=== PATIENT | male | born 1985 | race Caucasian/White ===

== ENCOUNTER 2016-08-23 08:55 | Emergency (ER) | payer SELFPAY ==
[~2016-08-23] VITALS: Ht 172.7 cm; Wt 72.6 kg
[2016-08-23 08:55] VITALS: BP 133/105
[2016-08-23] MEDS ORDERED: NS IV 1000 ML 1,000 ML IV ONE (09:03)
--- NOTE | 2016-08-23 09:25 | ED General ---
General Chief Complaint: Substance Abuse Stated Complaint: CHEST PAIN Source of Information: Patient Exam Limitations: No Limitations History of Present Illness Time Seen by Provider: 08:57 Initial Comments Here with report of feeling weak, shaky and not well. Noted to be hypertensive and tachycardic by EMS. Patient did admit to using methamphetamine yesterday. Last use was approximately 6 months ago. States he was very freaked out about what he was feeling. He has concerns about a rash on his hands as well as perceived feeling that he has no blood in his body. Denies nausea, vomiting or chest pain. Timing/Duration: 4-6 Hours Severity: Moderate Associated Systoms: No Cough, No Fever/Chills, No Nausea/Vomiting, No Shortness of Air, No Weakness Allergies and Home Medications Allergies Coded Allergies: No Known Drug Allergies (Unverified , 08/23/16) Home Medications No Active Prescriptions or Reported Meds Constitutional: see HPINo chills, No fever Respiratory: no symptoms reported Cardiovascular: see HPINo chest pain, palpitations Gastrointestinal: no symptoms reportedNo nausea, No vomiting Genitourinary: no symptoms reported Musculoskeletal: no symptoms reported Skin: see HPI change in color pruritus rash Psychiatric/Neurological: See HPI AnxietyDenies Weakness, Other (twitching) All Other Systems Reviewed Negative Unless Noted: Yes Past Nwpinka-Ybrxft-Ecwdnz Hx Patient Social History Alcohol Use: Occasionally Uses Recreational Drug Use: Yes (METH ) Smoking Status: Current Everyday Smoker Recent Hopitalizations: No Seasonal Allergies Seasonal Allergies: No Surgeries HX Surgeries: No Respiratory Hx Respiratory Disorders: No Cardiovascular Hx Cardiac Disorders: No Reviewed Nursing Assessment Reviewed/Agree w Nursing PMH: Yes Family Medical History Significant Family History: No Pertinent Family Hx Physical Exam Vital Signs Vital Sign - Last 12Hours 08/23/16 08:55 Temp 98.4 Pulse 93 Resp 18 B/P 169/93 Pulse Ox 100 Capillary Refill : General Appearance: WD/WN Anxious HEENT: PERRL/EOMI Pharynx Normal Other (facial twitching noted) Neck: Non Tender Supple Respiratory: Lungs Clear Normal Breath Sounds Cardiovascular: No Murmur Tachycardia Gastrointestinal: Non Tender Soft Back: Normal Inspection No CVA Tenderness No Vertebral Tenderness Extremity: Non Tender No Calf Tenderness Neurologic/Psychiatric: Alert Oriented x3 Skin: Normal Color Warm/Dry Progress/Results/Core Measures Results/Orders Lab Results Laboratory Tests Test 08/23/16 09:00 Range/Units Alanine Aminotransferase (ALT/SGPT) 36 0-55 U/L Albumin 4.2 3.2-4.5 G/DL Alkaline Phosphatase 90 40-136 U/L Anion Gap 9 5-14 MMOL/L Aspartate Amino Transf (AST/SGOT) 28 5-34 U/L BUN/Creatinine Ratio 8 Basophils # (Auto) 0.0 0.0-0.1 10^3/uL Basophils (%) (Auto) 0 0-10 % Blood Urea Nitrogen 8 7-18 MG/DL Calcium Level 8.5 8.5-10.1 MG/DL Carbon Dioxide Level 25 21-32 MMOL/L Chloride Level 104 98-107 MMOL/L Creatinine 0.95 0.60-1.30 MG/DL Eosinophils # (Auto) 0.2 0.0-0.3 10^3/uL Eosinophils (%) (Auto) 3 0-10 % Estimat Glomerular Filtration Rate > 60 Glucose Level 107 H 70-105 MG/DL Hematocrit 41 40-54 % Hemoglobin 14.9 13.3-17.7 G/DL Lymphocytes # (Auto) 2.5 1.0-4.0 X 10^3 Lymphocytes (%) (Auto) 34 12-44 % Mean Corpuscular Hemoglobin 32 25-34 PG Mean Corpuscular Hemoglobin Concent 36 32-36 G/DL Mean Corpuscular Volume 90 80-99 FL Mean Platelet Volume 10.8 H 7.4-10.4 FL Monocytes # (Auto) 0.9 0.0-1.0 X 10^3 Monocytes (%) (Auto) 12 0-12 % Neutrophils # (Auto) 3.7 1.8-7.8 X 10^3 Neutrophils (%) (Auto) 51 42-75 % Platelet Count 215 130-400 10^3/uL Potassium Level 3.4 L 3.6-5.0 MMOL/L Red Blood Count 4.60 4.35-5.85 10^6/uL Red Cell Distribution Width 12.4 10.0-14.5 % Sodium Level 138 135-145 MMOL/L Total Bilirubin 0.9 0.1-1.0 MG/DL Total Creatine Kinase 300 H 30-200 U/L Total Protein 6.6 6.4-8.2 G/DL Troponin I < 0.30 <0.30 NG/ML White Blood Count 7.3 4.3-11.0 10^3/uL My Orders Orders-JIM BARRIOS MD Iv 1000 Ml (Sodium Chloride 0.9%) (08/23/16 09:03) Metoprolol Succinate (Xl) Tab (Toprol Xl (08/23/16 09:15) Cbc With Automated Diff (08/23/16 09:33) Comprehensive Metabolic Panel (08/23/16 09:33) Creatine Kinase (08/23/16 09:33) Troponin I (08/23/16 09:33) Ekg Tracing (08/23/16 09:37) Medications Given in ED Current Medications Medications Dose Ordered Sig/Eri Route Start Time Stop Time Status Last Admin Dose Admin Metoprolol Succinate 50 mg ONCE ONCE PO 08/23/16 09:15 08/23/16 09:16 DC 08/23/16 09:16 50 MG Sodium Chloride 1,000 ml @ 0 mls/hr Q0M ONCE IV 08/23/16 09:03 08/23/16 09:06 DC 08/23/16 09:15 1,000 MLS/HR Vital Signs/I&O Vital Sign - Last 12Hours 08/23/16 08:55 Temp 98.4 Pulse 93 Resp 18 B/P 169/93 Pulse Ox 100 Progress Note : Progress Note Seen and evaluated. IV by EMS. Labs and normal saline 1 L bolus ordered. Metoprolol XL 50 mg by mouth given. Monitor patient. Patient counseled to avoid methamphetamine use at length. 1035: Labs reviewed. Heart rate improved. Discharged home with return precautions. Patient verbalize understanding instructions and agreement with plan. ECG Initial ECG Impression Date: Aug 23, 2016 Initial ECG Impression Time: 09:50 Initial ECG Rate: 92 Initial ECG Rhythm: S.Tach Initial ECG Impression: Normal Comment Sinus rhythm with normal axis. No evidence of ST elevation [place]. No previous available for comparison. Interpreted by me. Departure Impression Impression: Primary Impression: Dehydration Additional Impression: Methamphetamine use Disposition: 01 HOME, SELF-CARE Condition: Improved Departure-Patient Inst. Decision time for Depature: 10:37 Referrals: NO,LOCAL PHYSICIAN (PCP) Primary Care Physician Patient Instructions: ALCOHOL AND SUBSTANCE ABUSE, Dehydration, Adult (DC), Methamphetamine Add. Discharge Instructions: All discharge instructions reviewed with patient and/or family. Voiced understanding. Drink plenty of fluids. Follow up with your Dr. in a few days for recheck. Return for worse pain, fever, vomiting, weakness, breathing problems or other concerns as needed. Avoid methamphetamine or nonprescribed drugs. Scripts No Active Prescriptions or Reported Meds JIM BARRIOS MD Aug 23, 2016 09:25
[2016-08-23 09:39] LABS: BASOPHILS % (AUTO) 0 % (0-10); EOSINOPHILS # (AUTO) 0.2 10^3/uL (0.0-0.3); EOSINOPHILS % (AUTO) 3 % (0-10); LYMPHOCYTES # (AUTO) 2.5 X 10^3 (1.0-4.0); LYMPHOCYTES % (AUTO) 34 % (12-44); MEAN CORPUSCULAR HEMOGLOBIN 32 PG (25-34); MEAN CORPUSCULAR HGB CONC 36 G/DL (32-36); MEAN CORPUSCULAR VOLUME 90 FL (80-99); MEAN PLATELET VOLUME 10.8 FL (7.4-10.4); MONOCYTES # (AUTO) 0.9 X 10^3 (0.0-1.0); MONOCYTES % (AUTO) 12 % (0-12); NEUTROPHILS # (AUTO) 3.7 X 10^3 (1.8-7.8); NEUTROPHILS % (AUTO) 51 % (42-75); PLATELET COUNT 215 10^3/uL (130-400); RED CELL DISTRIBUTION WIDTH 12.4 % (10.0-14.5); WHITE BLOOD COUNT 7.3 10^3/uL (4.3-11.0)
[2016-08-23 09:51] LABS: ALANINE AMINOTRANSFERASE 36 U/L (0-55); ALBUMIN 4.2 G/DL (3.2-4.5); ANION GAP 9 MMOL/L (5-14); ASPARTATE AMINO TRANSFERASE 28 U/L (5-34); BILIRUBIN,TOTAL 0.9 MG/DL (0.1-1.0); BLOOD UREA NITROGEN 8 MG/DL (7-18); BUN/CREATININE RATIO 8; CALCIUM 8.5 MG/DL (8.5-10.1); CARBON DIOXIDE 25 MMOL/L (21-32); CHLORIDE 104 MMOL/L (98-107); CREATINE KINASE 300 U/L (30-200); CREATININE SERUM 0.95 MG/DL (0.60-1.30); GFR ESTIMATED > 60; GLUCOSE 107 MG/DL (70-105); POTASSIUM 3.4 MMOL/L (3.6-5.0); SODIUM 138 MMOL/L (135-145); TOTAL PROTEIN 6.6 G/DL (6.4-8.2)
[2016-08-23 09:57] LABS: TROPONIN I < 0.30 NG/ML (<0.30)
== END 2016-08-23 10:44 | disposition home or self-care (01) ==
LOC: EDUNIT# 08:59 → ER 09:01
DX: F15.10 Other stimulant abuse, uncomplicated (principal); R53.81 Other malaise; F17.210 Nicotine dependence, cigarettes, uncomplicated
CPT/HCPCS: 36415; 80053; 82550; 84484; 85025; 93005; 96360